=== PATIENT | female | born 1985 | race Caucasian/White ===

== ENCOUNTER 2016-05-02 08:15 | Inpatient (IN) | payer BC ==
[~2016-05-02] VITALS: Ht 165.1 cm; Wt 136.9 kg
[~2016-05-02 08:15] MED LIST: IMITREX6 MG/0.5 M SQ; MIRENA52 MG IY; OMEPRAZOLE40 M1 PO; PRISTIQ50 MG PO; TYLENOL REGULA325 MG PO; VICODIN 5-3001 EACH PO
[2016-05-02 08:50] LABS: POINT-OF-CARE METER ID UU14174212
[2016-05-02 09:00] VITALS: BP 122/56
[2016-05-02 15:11] VITALS: BP 133/65
[2016-05-02 18:54] VITALS: BP 126/72
[2016-05-02 22:09] VITALS: BP 130/71
[2016-05-03 03:48] VITALS: BP 119/73
[2016-05-03 06:37] LABS: HEMATOCRIT 34.6 % (36.0-46.0); MCHC 32.9 G/DL (30.0-36.0); MEAN PLAT.VOLUME 8.6 uM^3 (9.5-12.4); PLATELET COUNT 261 K/uL (156-360); RBC DIS.WIDTH-CV 14.3 % (11.8-14.6); RBC DIS.WIDTH-SD 42.5 % (39-53); RED BLOOD COUNT 4.22 M/uL (3.80-5.20); WHITE BLOOD COUNT 10.1 K/uL (4.1-10.2)
[2016-05-03 07:06] LABS: ANION GAP 9 MEQ/L (2-14); CHLORIDE 104 MEQ/L (99-109); GFR ESTIMATE (CALCULATED) > 59 mL/min/; GLUCOSE 116 mg/dL (70-99); MAGNESIUM 1.9 mg/dl (1.3-2.7); POTASSIUM 3.9 MEQ/L (3.7-5.4); SAMPLE HEMOLYSIS CHECK 0; SAMPLE ICTERIC CHECK 0; SAMPLE LIPEMIA CHECK 0; SODIUM 138 MEQ/L (136-147); UREA NITROGEN (BUN) 8 mg/dL (9-23)
[2016-05-03] MEDS ORDERED: HYDROCODON-ACE1 EAC7 PO (08:45)
[2016-05-03] MEDS ORDERED: ZOFRAN ODT4 MG PO (08:56)
== END 2016-05-03 10:40 | disposition home or self-care (01) | DRG 621 ==
LOC: 2SOUTH 08:15 → 2EAST 15:01 → 2SOUTH 15:04 → 2EAST 05-03 10:40
PROVIDERS: Surgery
PROC: 0DB64Z3 Excision of Stomach, Percutaneous Endoscopic Approach, Vertical (ICD-10-PCS; principal; 2016-05-02)
DX: E66.01 Morbid (severe) obesity due to excess calories (principal); Z68.43 Body mass index [BMI] 50.0-59.9, adult; Z87.891 Personal history of nicotine dependence
CPT/HCPCS: 80048; 82948; 83735; 84100; 85027; J0330; J1100; J1170; J1580; J1644; J1650; J1815; J2250; J2270; J2405; J2550; J2710; J2765; J3010; J3480; J7050; J7120; S0020

== ENCOUNTER 2016-08-15 14:07 | Emergency (ER) | payer BC ==
[~2016-08-15] VITALS: Ht 162.6 cm; Wt 101.5 kg
[~2016-08-15 14:07] MED LIST changes: +HYDROCODON-ACE1 EAC7 PO; +ZOFRAN ODT4 MG PO
[2016-08-15 14:48] LABS: HEMATOCRIT 37.1 % (36.0-46.0); MCH 28.4 PG (29.0-34.0); MCHC 33.2 G/DL (30.0-36.0); MCV 85.7 FL (83-99); MEAN PLAT.VOLUME 10.1 uM^3 (9.5-12.4); PLATELET COUNT 206 K/uL (156-360); RBC DIS.WIDTH-CV 14.6 % (11.8-14.6); RBC DIS.WIDTH-SD 45.7 % (39-53); RED BLOOD COUNT 4.33 M/uL (3.80-5.20); WHITE BLOOD COUNT 4.5 K/uL (4.1-10.2)
[2016-08-15 14:58] LABS: CHLORIDE 108 mEq/L (99-109); POTASSIUM 4.1 mEq/L (3.7-5.4); SODIUM 139 mEq/L (136-147)
[2016-08-15 14:59] LABS: MAGNESIUM 2.1 mg/dL (1.3-2.7)
[2016-08-15 15:00] LABS: GLUCOSE 90 mg/dL (70-99)
[2016-08-15 15:01] LABS: ANION GAP 12 MEQ/L (2-14)
[2016-08-15 15:02] LABS: TOTAL BILIRUBIN 0.7 mg/dL (0.0-1.0)
[2016-08-15 15:04] LABS: ALKALINE PHOSPHATASE 50 IU/L (3-129); GFR ESTIMATE (CALCULATED) > 59 mL/min/
[2016-08-15 15:05] LABS: UREA NITROGEN (BUN) 9 mg/dL (9-23)
[2016-08-15 15:22] LABS: ADD MIUA? YES; BILIRUBIN NEGATIVE; BLOOD LARGE; COLOR AMBER ((YELLOW)); GLUCOSE (STRIP) NEGATIVE; KETONES 80; LEUKOCYTES MODERATE; NITRITE NEGATIVE; PROTEIN (STRIP) 100; SPECIFIC GRAVITY 1.029 (1.000-1.030); UROBILINOGEN 0.2 MG/DL (0.2-1.0)
[2016-08-15 15:56] LABS: CASTS NONE SEEN /LPF; EPITHELIAL CELLS 4+ /HPF
[2016-08-15 15:57] LABS: BACTERIA 4+ /HPF; MUCUS 2+ /LPF; UCUL ADDED? YES; WHITE BLOOD CELLS TNTC /HPF (0-5)
[2016-08-15] MEDS ORDERED: KEFLEX500 MG PO (16:29)
[2016-08-15] MEDS ORDERED: KLOR-CON M2020 MEQ PO (16:50)
[2016-08-15 18:48] VITALS: BP 109/58
== END 2016-08-15 18:50 | disposition home or self-care (01) ==
LOC: EME 14:07
PROVIDERS: Emergency Medicine
DX: E86.0 Dehydration (principal); N39.0 Urinary tract infection, site not specified; K21.9 Gastro-esophageal reflux disease without esophagitis; Z87.891 Personal history of nicotine dependence
CPT/HCPCS: 80053; 81003; 83735; 85027; 87086; 99281; 99285; J0696; J7030; J7050